=== PATIENT | male | born 1950 | race Caucasian/White ===

== ENCOUNTER → 2017-05-15 | Day surgery (SDC) | payer BC ==
[~2017-05-15] VITALS: Ht 172.7 cm; Wt 74.8 kg
[~2017-05-15] MED LIST: ASPI81TA94 PO; CHOL10005 PO; LIDOCAINE/SOD BICARB 8.4% SYR ID ONE; LISI-351 PO; NORMOSOL R SOLN(*) 1000 ML BAG 1,000 ML IV PRN; PROPOFOL EMUL(*) 10MG/ML 20 ML 40 ML ONE; PSYL3.4P2 PO; SIMV-49 PO; ZIA10 PO
[2017-05-15 09:12] VITALS: BP 149/87
[2017-05-15 10:59] VITALS: BP 93/65
[2017-05-15 11:14] VITALS: BP 102/67
[2017-05-15 11:27] VITALS: BP 109/91
[2017-05-15 11:29] VITALS: BP 116/74
== END ==
LOC: OR 01:23
PROVIDERS: ATTEND Internal Medicine Gastroenterology
DX: Z12.11 Encounter for screening for malignant neoplasm of colon (principal); K64.8 Other hemorrhoids; K57.30 Diverticulosis of large intestine without perforation or abscess without bleeding
CPT/HCPCS: 00812; 45378; J2704